=== PATIENT | female | born 1975 | race Caucasian/White ===

== ENCOUNTER → 2019-01-11 | Outpatient (CLI) | payer OTHER | LOC: M.RAD 09:20 | DX: N63.23 Unspecified lump in the left breast, lower outer quadrant (principal); N63.11 Unspecified lump in the right breast, upper outer quadrant; F41.1 Generalized anxiety disorder; F41.0 Panic disorder [episodic paroxysmal anxiety]; G43.909 Migraine, unspecified, not intractable, without status migrainosus ==